=== PATIENT | female | born 1990 | race Caucasian/White ===

== ENCOUNTER 2016-12-08 18:45 | Observation (INO) | payer OTHER ==
[~2016-12-08] VITALS: Ht 167.6 cm; Wt 49.2 kg
[~2016-12-08 18:45] MED LIST: AMITRIPTYLINE H10 MG PO; ASPIR-LOW81 MG PO; FLEXERIL10 MG PO; NOHOMEMEDS; TOPAMAX50 MG PO
[2016-12-08 20:14] LABS: ADD MIUA? YES; BILIRUBIN NEGATIVE; BLOOD NEGATIVE; COLOR STRAW ((YELLOW)); GLUCOSE (STRIP) NEGATIVE; KETONES NEGATIVE; LEUKOCYTES NEGATIVE; NITRITE NEGATIVE; PROTEIN (STRIP) NEGATIVE; SPECIFIC GRAVITY 1.005 (1.000-1.030); UROBILINOGEN 0.2 MG/DL (0.2-1.0)
[2016-12-08 20:35] LABS: BACTERIA 3+ /HPF; EPITHELIAL CELLS 1+ /HPF; MUCUS NONE SEEN /LPF; RED BLOOD CELLS 0-5 /HPF (0-5); UCUL ADDED? NO; WHITE BLOOD CELLS 0-5 /HPF (0-5)
[2016-12-08 20:38] LABS: HEMATOCRIT 42.5 % (36.0-46.0); MCHC 33.6 G/DL (30.0-36.0); MCV 92.2 FL (83-99); MEAN PLAT.VOLUME 9.3 uM^3 (9.5-12.4); PLATELET COUNT 267 K/uL (156-360); RBC DIS.WIDTH-CV 12.1 % (11.8-14.6); RBC DIS.WIDTH-SD 40.9 % (39-53); RED BLOOD COUNT 4.61 M/uL (3.80-5.20); WHITE BLOOD COUNT 7.2 K/uL (4.1-10.2)
[2016-12-08 20:48] LABS: CHLORIDE 113 mEq/L (99-109); POTASSIUM 3.9 mEq/L (3.7-5.4); SODIUM 143 mEq/L (136-147)
[2016-12-08 20:49] LABS: GLUCOSE 107 mg/dL (70-99)
[2016-12-08 20:51] LABS: ANION GAP 8 MEQ/L (2-14)
[2016-12-08 20:53] LABS: GFR ESTIMATE (CALCULATED) > 59 mL/min/
[2016-12-08 20:54] LABS: UREA NITROGEN (BUN) 12 mg/dL (9-23)
[2016-12-08 23:27] LABS: TROP-I INTERPRETATION NEGATIVE; TROPONIN-I < 0.01 ng/mL (0.0-0.30)
[2016-12-08] MEDS ORDERED: TOPAMAX25 MG PO (23:47)
[2016-12-08] MEDS ORDERED: LO-DOSE ASPIRIN81 M2 PO (23:47)
[2016-12-08] MEDS ORDERED: ACYCLOVIR400 MG PO (23:47)
[2016-12-09 03:50] LABS: HDL CHOLESTEROL 47 MG/DL (Desirable>=50); LDL CHOLESTEROL 94 mg/dL (Desirable<100); NON-HDL CHOLESTEROL 104 mg/dL (Desirable<160); TOTAL CHOLESTEROL 151 mg/dL (Desirable<200); TRIGLYCERIDES 50 MG/DL (Normal: <150)
[2016-12-09 04:01] VITALS: BP 120/56
[2016-12-09 06:07] LABS: HEMATOCRIT 40.4 % (36.0-46.0); MCH 31.9 PG (29.0-34.0); MCHC 34.7 G/DL (30.0-36.0); MEAN PLAT.VOLUME 9.4 uM^3 (9.5-12.4); PLATELET COUNT 256 K/uL (156-360); RBC DIS.WIDTH-CV 12.2 % (11.8-14.6); RBC DIS.WIDTH-SD 40.7 % (39-53); RED BLOOD COUNT 4.39 M/uL (3.80-5.20)
[2016-12-09 06:37] LABS: ALKALINE PHOSPHATASE 51 IU/L (3-129); ANION GAP 6 MEQ/L (2-14); CHLORIDE 111 MEQ/L (99-109); GFR ESTIMATE (CALCULATED) > 59 mL/min/; GLUCOSE 94 mg/dL (70-99); POTASSIUM 4.1 MEQ/L (3.7-5.4); SAMPLE HEMOLYSIS CHECK 0; SAMPLE ICTERIC CHECK 0; SAMPLE LIPEMIA CHECK 0; SODIUM 141 MEQ/L (136-147); TOTAL BILIRUBIN 0.4 MG/DL (0.0-1.0); UREA NITROGEN (BUN) 10 mg/dL (9-23)
[2016-12-09 07:40] LABS: Estimated Average Glucose 105 mg/dL (70-123); HEMOGLOBIN A1c (GLYCOHEMOGLOB) 5.3 % HGB (Below 5.7)
[2016-12-09 08:20] VITALS: BP 107/59
[2016-12-09 11:45] VITALS: BP 111/57
[2016-12-09 15:59] VITALS: BP 104/51
== END 2016-12-09 17:10 | disposition home or self-care (01) ==
LOC: EME 18:45 → EDOF 12-09 01:23 → 5WEST 12-09 03:13
PROVIDERS: Emergency Medicine; Internal Medicine
DX: G45.9 Transient cerebral ischemic attack, unspecified (principal); Z86.73 Personal history of transient ischemic attack (TIA), and cerebral infarction without residual deficits; G43.909 Migraine, unspecified, not intractable, without status migrainosus; Q26.8 Other congenital malformations of great veins; G93.0 Cerebral cysts
CPT/HCPCS: 70450; 70551; 71020; 80048; 80053; 80061; 81003; 83036; 84484; 85027; 93005; 93880; 99281; 99285; G0378

== ENCOUNTER 2016-12-20 14:00 | Emergency (ER) | payer OTHER ==
[~2016-12-20] VITALS: Ht 165.1 cm; Wt 49.9 kg
[~2016-12-20 14:00] MED LIST changes: +ACYCLOVIR400 MG PO; +LO-DOSE ASPIRIN81 M2 PO; +TOPAMAX25 MG PO
[2016-12-20 15:23] LABS: HEMATOCRIT 41.8 % (36.0-46.0); MCH 30.9 PG (29.0-34.0); MCHC 33.7 G/DL (30.0-36.0); MCV 91.7 FL (83-99); MEAN PLAT.VOLUME 9.1 uM^3 (9.5-12.4); PLATELET COUNT 258 K/uL (156-360); RBC DIS.WIDTH-CV 12.2 % (11.8-14.6); RBC DIS.WIDTH-SD 40.6 % (39-53); RED BLOOD COUNT 4.56 M/uL (3.80-5.20); WHITE BLOOD COUNT 15.4 K/uL (4.1-10.2)
[2016-12-20 15:41] LABS: CHLORIDE 108 mEq/L (99-109); POTASSIUM 3.8 mEq/L (3.7-5.4); SODIUM 138 mEq/L (136-147)
[2016-12-20 15:42] LABS: GLUCOSE 106 mg/dL (70-99)
[2016-12-20 15:44] LABS: ANION GAP 9 MEQ/L (2-14); TROP-I INTERPRETATION NEGATIVE; TROPONIN-I < 0.01 ng/mL (0.0-0.30)
[2016-12-20 15:46] LABS: GFR ESTIMATE (CALCULATED) > 59 mL/min/
[2016-12-20 15:47] LABS: UREA NITROGEN (BUN) 12 mg/dL (9-23)
[2016-12-20 15:55] LABS: QUANTITATIVE HCG < 4.0 MIU/ML
[2016-12-20 17:34] LABS: D-DIMER ELISA < 150.00 ng/mLDDU (<230)
[2016-12-20 18:00] VITALS: BP 104/58
== END 2016-12-20 18:20 | disposition home or self-care (01) ==
LOC: EME 14:00
PROVIDERS: Emergency Medicine
DX: R55 Syncope and collapse (principal); G44.039 Episodic paroxysmal hemicrania, not intractable; Z86.73 Personal history of transient ischemic attack (TIA), and cerebral infarction without residual deficits
CPT/HCPCS: 71010; 80048; 84484; 84702; 85027; 85379; 93005; 99281; 99285

== ENCOUNTER 2017-07-19 20:08 | Emergency (ER) | payer OTHER ==
[~2017-07-19] VITALS: Ht 167.6 cm; Wt 53.3 kg
[2017-07-19 21:56] LABS: APPEARANCE CLEAR ((CLEAR)); BILIRUBIN NEGATIVE; BLOOD NEGATIVE; COLOR COLORLESS ((YELLOW)); GLUCOSE (STRIP) NEGATIVE; KETONES NEGATIVE; LEUKOCYTES NEGATIVE; NITRITE NEGATIVE; PROTEIN (STRIP) NEGATIVE; SPECIFIC GRAVITY 1.006 (1.000-1.030); UCUL ADDED? NO; UROBILINOGEN 0.2 MG/DL (0.2-1.0)
[2017-07-19 22:45] LABS: HEMATOCRIT 41.4 % (36.0-46.0); HEMOGLOBIN 14.3 G/DL (11.9-15.5); MCH 32.6 PG (29.0-34.0); MCHC 34.5 G/DL (30.0-36.0); MCV 94.3 FL (83-99); PLATELET COUNT 284 K/uL (156-360); RBC DIS.WIDTH-CV 11.8 % (11.8-14.6); RBC DIS.WIDTH-SD 40.9 % (39-53); RED BLOOD COUNT 4.39 M/uL (3.80-5.20); WHITE BLOOD COUNT 9.3 K/uL (4.1-10.2)
[2017-07-19 22:55] LABS: ALBUMIN 4.7 g/dL (3.2-4.8); CHLORIDE 110 mEq/L (99-109); POTASSIUM 3.9 mEq/L (3.7-5.4); SODIUM 140 mEq/L (136-147)
[2017-07-19 22:57] LABS: GLUCOSE 111 mg/dL (70-99); TOTAL PROTEIN 7.6 g/dL (6.4-8.3)
[2017-07-19 22:59] LABS: TOTAL BILIRUBIN 0.2 mg/dL (0.0-1.0)
[2017-07-19 23:01] LABS: ALKALINE PHOSPHATASE 61 IU/L (3-129); CREATININE 1.1 mg/dL (0.6-1.3); GFR ESTIMATE (CALCULATED) > 59 mL/min/
[2017-07-19 23:02] LABS: UREA NITROGEN (BUN) 16 mg/dL (9-23)
[2017-07-19 23:03] LABS: AST (GOT) 18 IU/L (2-34)
[2017-07-19 23:04] LABS: ALT (GPT) 26 IU/L (3-49)
[2017-07-19 23:18] LABS: QUANTITATIVE HCG < 4.0 MIU/ML
[2017-07-20 03:06] VITALS: BP 100/54
== END 2017-07-20 03:09 | disposition home or self-care (01) ==
LOC: EME 20:08
DX: M79.604 Pain in right leg (principal); N83.201 Unspecified ovarian cyst, right side; M25.561 Pain in right knee; M79.89 Other specified soft tissue disorders; Z86.73 Personal history of transient ischemic attack (TIA), and cerebral infarction without residual deficits; Z79.82 Long term (current) use of aspirin
CPT/HCPCS: 80053; 81003; 84702; 85027; 93005; 93971; 99281; 99285

== ENCOUNTER 2017-09-11 18:19 | Observation (INO) | payer OTHER ==
[~2017-09-11] VITALS: Ht 167.6 cm; Wt 51.7 kg
[2017-09-11 19:13] LABS: HEMATOCRIT 41.1 % (36.0-46.0); HEMOGLOBIN 14.2 G/DL (11.9-15.5); MCH 32.2 PG (29.0-34.0); MCHC 34.5 G/DL (30.0-36.0); MCV 93.2 FL (83-99); PLATELET COUNT 279 K/uL (156-360); RBC DIS.WIDTH-CV 11.9 % (11.8-14.6); RBC DIS.WIDTH-SD 41.6 % (39-53); RED BLOOD COUNT 4.41 M/uL (3.80-5.20); WHITE BLOOD COUNT 8.8 K/uL (4.1-10.2)
[2017-09-11 19:29] LABS: CHLORIDE 111 mEq/L (99-109); POTASSIUM 3.6 mEq/L (3.7-5.4); SODIUM 142 mEq/L (136-147)
[2017-09-11 19:31] LABS: GLUCOSE 115 mg/dL (70-99)
[2017-09-11 19:33] LABS: TOTAL BILIRUBIN 0.3 mg/dL (0.0-1.0)
[2017-09-11 19:35] LABS: ALKALINE PHOSPHATASE 58 IU/L (3-129); GFR ESTIMATE (CALCULATED) > 59 mL/min/
[2017-09-11 19:36] LABS: UREA NITROGEN (BUN) 17 mg/dL (9-23)
[2017-09-11 19:37] LABS: AST (GOT) 16 IU/L (2-34)
[2017-09-11 19:38] LABS: ALT (GPT) 20 IU/L (3-49)
[2017-09-11] MEDS ORDERED: TOPIRAMATE25 MG PO (19:59)
[2017-09-11] MEDS ORDERED: PANTOPRAZOLE SO20 MG PO (20:00)
[2017-09-11] MEDS ORDERED: DICLOFENAC SOD100 G1 TP (20:01)
[2017-09-11] MEDS ORDERED: INDOMETHACIN25 MG PO (20:03)
[2017-09-11] MEDS ORDERED: VALACYCLOVIR500 MG PO (20:05)
[2017-09-11] MEDS ORDERED: AZELASTINE137 MCG/0. BOTH NARES (20:08)
[2017-09-11] MEDS ORDERED: FLUOROMETHOLONE15 ML RIGHT EYE (20:09)
[2017-09-11] MEDS ORDERED: INDOCIN25 MG PO (20:12)
[2017-09-11 22:24] LABS: HDL CHOLESTEROL 50 MG/DL (Desirable>=50); LDL CHOLESTEROL 92 mg/dL (Desirable<100); NON-HDL CHOLESTEROL 102 mg/dL (Desirable<160); TOTAL CHOLESTEROL 152 mg/dL (Desirable<200); TRIGLYCERIDES 50 MG/DL (Normal: <150)
[2017-09-11 23:03] LABS: TROP-I INTERPRETATION NEGATIVE; TROPONIN-I < 0.01 ng/mL (0.0-0.30)
[2017-09-11 23:56] VITALS: BP 108/59
[2017-09-12 03:48] VITALS: BP 95/50
[2017-09-12 07:21] VITALS: BP 102/59
[2017-09-12 11:12] VITALS: BP 106/57
[2017-09-12 15:04] LABS: TROP-I INTERPRETATION NEGATIVE; TROPONIN-I < 0.01 ng/mL (0.0-0.30)
[2017-09-12 15:32] VITALS: BP 94/55
[2017-09-12] MEDS ORDERED: PRAVACHOL40 MG PO (16:47)
[2017-09-12] MEDS ORDERED: ASPIR 8181 M1 PO (16:47)
== END 2017-09-12 17:18 | disposition home or self-care (01) ==
LOC: EME 18:19 → EDOF 20:58 → 5SOUTH 20:58 → ENRESERV 21:00 → 5SOUTH 23:14 → ENPENDDIS 09-12 16:53 → 5SOUTH 09-12 17:18
PROVIDERS: Emergency Medicine Emergency Medical Services; Hospitalist
DX: G45.9 Transient cerebral ischemic attack, unspecified (principal); G43.109 Migraine with aura, not intractable, without status migrainosus; Q27.8 Other specified congenital malformations of peripheral vascular system; Z86.73 Personal history of transient ischemic attack (TIA), and cerebral infarction without residual deficits; I37.0 Nonrheumatic pulmonary valve stenosis; R56.9 Unspecified convulsions; Z86.19 Personal history of other infectious and parasitic diseases; Z88.1 Allergy status to other antibiotic agents; Z88.6 Allergy status to analgesic agent; Z79.82 Long term (current) use of aspirin
CPT/HCPCS: 70450; 70551; 71045; 80053; 80061; 83036; 84484; 85027; 85610; 85730; 93005; 93880; 93970; G0378; J1644; J7030; J7040